=== PATIENT | female | born 2000 | race Caucasian/White ===

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

== ENCOUNTER 2021-12-15 16:26 | Emergency (ER) | payer MEDICAID ==
[2021-12-15] MEDS ORDERED: Sodium Chloride 0.9% 10 ML Syringe FLUSH PRN (16:44)
[2021-12-15] MEDS: Ondansetron 4 MG/2 ML SDV IVPUSH ONE (16:55)
[2021-12-15] MEDS: Sodium Chloride 0.9% 1,000 ML IV SCH (16:55)
[2021-12-15 17:23] LABS: PTT,PARTIAL THROMBOPLSTIN TIME 26.5 SEC (20.5-30.9)
[2021-12-15 17:33] LABS: CHLORIDE,CL 102 mmol/L (98-107); SODIUM,NA 139 mmol/L (136-145)
[2021-12-15 17:45] LABS: ANION GAP 16.4 mmol/L (5-15)
[2021-12-15 17:47] LABS: BARBITURATE SCREEN,URINE NEGATIVE (NEGATIVE); BENZODIAZEPINES SCREEN,URINE NEGATIVE (NEGATIVE); METHAMPHETAMINE SCREEN, URINE NEGATIVE (NEGATIVE); THC SCREEN,URINE 50 NG/ML NEGATIVE (NEGATIVE)
[2021-12-15 17:48] LABS: BUPRENORPHINE SCREEN,URINE NEGATIVE (NEGATIVE)
[2021-12-15] MEDS: Iopamidol 612 MG/ML 100 ML Bottle IVPUSH ONE (18:29)
[2021-12-15] MEDS: HYDROmorphone 0.5 MG/0.5 ML Syringe IVPUSH ONE (19:01)
== END 2021-12-15 20:15 | disposition home or self-care (01) ==
LOC: VM.ED 16:26
DX: K52.9 Noninfective gastroenteritis and colitis, unspecified (principal); Z79.899 Other long term (current) drug therapy; Z88.2 Allergy status to sulfonamides; Z88.0 Allergy status to penicillin; Z91.040 Latex allergy status; Z88.1 Allergy status to other antibiotic agents
CPT/HCPCS: 36415; 74177; 80053; 80305; 80307; 81003; 81025; 83605; 83690; 83735; 84100; 85025; 85610; 85730; 86140; 96361; 96374; 96375; 99284; J1170; J2405; J7030; Q9967

== ENCOUNTER 2022-08-31 09:42 | Emergency (ER) | payer MEDICAID ==
[2022-08-31] MEDS ORDERED: Ondansetron 4 MG/2 ML SDV IVPUSH ONE ×2 (10:04→12:59)
[2022-08-31] MEDS ORDERED: Sodium Chloride 0.9% 1,000 ML IV SCH ×2 (10:15→11:15)
[2022-08-31 10:45] LABS: ANION GAP 14.2 mmol/L (5-15); CHLORIDE,CL 100 mmol/L (98-107); SODIUM,NA 135 mmol/L (136-145)
[2022-08-31 10:46] LABS: ESTIMATED GFR 126 mL/min (>=60)
[2022-08-31 11:24] LABS: BARBITURATE SCREEN,URINE NEGATIVE (NEGATIVE); BENZODIAZEPINES SCREEN,URINE NEGATIVE (NEGATIVE); BUPRENORPHINE SCREEN,URINE NEGATIVE (NEGATIVE); METHAMPHETAMINE SCREEN, URINE NEGATIVE (NEGATIVE); THC SCREEN,URINE 50 NG/ML NEGATIVE (NEGATIVE)
[2022-08-31] MEDS ORDERED: Iopamidol 612 MG/ML 100 ML Bottle IVPUSH ONE (11:38)
[2022-08-31] MEDS ORDERED: Piperacillin/Tazobactam 3.375 GM in Sodium Chloride 0.9% 100 ML IV ONE ×2 (12:35→12:39)
[2022-08-31] MEDS ORDERED: Morphine 4 MG/ML Syringe IVPUSH ONE (12:59)
== END 2022-08-31 13:40 | disposition home or self-care (01) ==
LOC: VM.ED 09:42
DX: K37 Unspecified appendicitis (principal); Z72.0 Tobacco use; Z88.2 Allergy status to sulfonamides; Z88.0 Allergy status to penicillin; Z88.1 Allergy status to other antibiotic agents; Z91.040 Latex allergy status; Z79.899 Other long term (current) drug therapy
CPT/HCPCS: 74177; 80053; 80305-QW; 81001; 81025; 82150; 83690; 83735; 84100; 85025; 86140; 96361; 96365; 96375; 96376; 99284; 99284-25; J2270; J2405; J2543; J7030; J7050; Q9967